=== PATIENT | female | born 1985 | race American Indian/Alaskan Native ===

== ENCOUNTER 2019-01-01 23:48 | Emergency (ER) | payer SELFPAY ==
--- NOTE | 2019-01-02 00:56 | Emergency Department Report ---
ED Extremity Problem HPI - General Chief complaint: Extremity Problem,Nontraumatic Stated complaint: RT FOOT PAIN Time Seen by Provider: 01/02/19 00:45 Source: patient Mode of arrival: Ambulatory Limitations: No Limitations - History of Present Illness Initial comments: Patient is a 33-year-old female that presents emergency room with complaints of right foot pain is swelling 2 days. Patient states that she did not fall and patient denies trauma. Patient states the pain is an 8 out of 10. Patient states the pain is better with rest and worse with palpation and movement. Patient states the pain is radiating to her right calf. Patient states she also has redness. Patient denies fever and chills. Patient denies chest pain shortness of breath. MD Complaint: extremity pain, extremity swelling -: Sudden Location: right, lower extremity (RT FOOT/RT LOWER EXT. ) History of Same: No Radiation: none Severity scale (0 -10): 10 Quality: stabbing Consistency: constant Improves with: rest Worsens with: weight bearing, walking, palpation Associated Symptoms: denies: chest pain, shortness of breath, fever, myalgias, arthralgias, rash - Related Data Previous Rx's Medication Instructions Recorded Last Taken Type Iron Fum,Ps/Folic/Bcomp,C No.9 1 each PO DAILY 30 Days #30 capsule 01/02/19 Unknown Rx [Integra Plus Capsule] Sulfamethoxazole/Trimethoprim 1 each PO BID 10 Days #20 tablet 01/02/19 Unknown Rx [Bactrim DS TAB] Allergies Allergy/AdvReac Type Severity Reaction Status Date / Time No Known Allergies Allergy Unverified 01/02/19 00:33 ED Review of Systems ROS: Stated complaint: RT FOOT PAIN Other details as noted in HPI Comment: All other systems reviewed and negative Constitutional: denies: chills, fever Eyes: denies: eye pain, eye discharge, vision change ENT: denies: ear pain, throat pain Respiratory: denies: cough, shortness of breath, wheezing Cardiovascular: denies: chest pain, palpitations Endocrine: no symptoms reported Gastrointestinal: denies: abdominal pain, nausea, diarrhea Genitourinary: denies: urgency, dysuria, discharge Musculoskeletal: denies: back pain, arthralgia Skin: denies: rash, lesions Neurological: denies: headache, weakness, paresthesias Psychiatric: denies: anxiety, depression Hematological/Lymphatic: denies: easy bleeding, easy bruising ED Past Medical Hx - Past Medical History Previous Medical History?: Yes Hx HIV: Yes Additional medical history: Anemia due to heavy menstrual cycles - Surgical History Past Surgical History?: Yes Additional Surgical History: . Tubal Ligation - Family History Family history: no significant - Social History Smoking Status: Current Every Day Smoker Substance Use Type: Alcohol - Medications Home Medications: Home Medications Medication Instructions Recorded Confirmed Last Taken Type Iron Fum,Ps/Folic/Bcomp,C No.9 1 each PO DAILY 30 Days #30 capsule 01/02/19 Unknown Rx [Integra Plus Capsule] Sulfamethoxazole/Trimethoprim 1 each PO BID 10 Days #20 tablet 01/02/19 Unknown Rx [Bactrim DS TAB] ED Physical Exam - General Limitations: No Limitations General appearance: alert, in no apparent distress - Head Head exam: Present: atraumatic, normocephalic - Eye Eye exam: Present: normal appearance - ENT ENT exam: Present: mucous membranes moist - Neck Neck exam: Present: normal inspection - Respiratory Respiratory exam: Present: normal lung sounds bilaterally. Absent: respiratory distress - Cardiovascular Cardiovascular Exam: Present: regular rate, normal rhythm. Absent: systolic murmur, diastolic murmur, rubs, gallop - GI/Abdominal GI/Abdominal exam: Present: soft, normal bowel sounds - Extremities Exam Extremities exam: Present: normal inspection (RT FOOT REDNESS,. ), tenderness (RT FOOT/ANKLE AND RT CALF), normal capillary refill, pedal edema, calf tenderness - Back Exam Back exam: Present: normal inspection - Neurological Exam Neurological exam: Present: alert, oriented X3 - Psychiatric Psychiatric exam: Present: normal affect, normal mood - Skin Skin exam: Present: warm, dry, intact, normal color. Absent: rash ED Course Vital Signs 01/02/19 00:28 Temperature 98.2 F Pulse Rate 102 H Respiratory 16 Rate Blood Pressure 142/87 O2 Sat by Pulse 98 Oximetry - Reevaluation(s) Reevaluation #1: I discussed all results with patient. I discussed plan of care with patient. Patient agrees with plan of care. Patient is stable for discharge. Patient will be discharged home. Patient given discharge instructions. Patient voiced understanding of discharge instructions. 01/02/19 02:23 ED Medical Decision Making - Lab Data Result diagrams: 01/02/19 01:17 01/02/19 01:17 - Radiology Data Radiology results: report reviewed, image reviewed interpreted by me: No acute findings on foot x-ray except for soft tissue swelling. RIGHT FOOT, 2 VIEWS 01/02/2019 INDICATION / CLINICAL INFORMATION: FOOT PAIN AND SWELLING. COMPARISON: None available. FINDINGS: No skeletal abnormality. No radiopaque soft tissue foreign bodies. Generalized soft tissue swelling of the foot, distally. - Medical Decision Making Patient is a 33-year-old female that presents emergency room with complaints of right foot pain and swelling. Patient found to have redness in the dorsal aspect of her right foot and patient will be treated for cellulitis with antibiotics. Due to the fact the patient has calf tenderness and pain radiating to her right calf a right lower extremity ultrasound be done. We do not have ultrasound at night and patient given an outpatient order to return at 8 AM for a Doppler ultrasound the right lower extremity. Patient given all instructions on how to contact the ultrasound department and how to have her ultrasound done here. Patient given a dose of Lovenox to cover the possibility of a DVT. Patient's x-rays negative for fracture. Patient's labs were done and unr emarkable except for anemia, and hypokalemia. Patient will be given iron supplement . Patient has a long history of anemia due to her menstrual cycles. Patient stable for discharge. Patient discharged home with discharge instructions and follow-up instructions as well as follow-up instructions for a ultrasound in the morning. - Differential Diagnosis DVT, sprain strain fracture. Cellulitis. Critical care attestation.: If time is entered above; I have spent that time in minutes in the direct care of this critically ill patient, excluding procedure time. ED Disposition Clinical Impression: Right foot pain, Cellulitis of right foot, Calf tenderness, Lower extremity pain, right, Swelling of lower extremity, Swelling of right foot, Hypokalemia Anemia Qualifiers: Anemia type: unspecified type Qualified Code(s): D64.9 - Anemia, unspecified Disposition: - TO HOME OR SELFCARE Is pt being admited?: No Does the pt Need Aspirin: No Condition: Stable Instructions: Cellulitis (ED), Iron Rich Diet (ED), Hypokalemia (ED), Iron Deficiency Anemia (ED), Anemia (ED), RICE Therapy (ED) Additional Instructions: Patient to follow-up with primary care in 2-3 days. Patient to follow-up with orthopedist in 2-3 days. Patient eat a banana daily. Patient to follow up here at 8 AM for a Doppler ultrasound of the right lower extremity. Patient to have her chemistry check with her primary care for low potassium. Patient to return to ER if condition worsens. Patient to rest. Patient to increase water. Patient to take meds as directed. Patient's take Tylenol or ibuprofen when necessary for pain. Prescriptions: Sulfamethoxazole/Trimethoprim [Bactrim DS TAB] 1 each PO BID 10 Days #20 tablet Iron Fum,Ps/Folic/Bcomp,C No.9 [Integra Plus Capsule] 1 each PO DAILY 30 Days #30 capsule Referrals: PRIMARY CARE, [Primary Care Provider] - 3-5 Days Time of Disposition: 02:32
[2019-01-02] MEDS ORDERED: LOVENOX SUB-Q ONE (00:59)
--- NOTE | 2019-01-02 01:43 | XRay Report ---
RIGHT FOOT, 2 VIEWS 01/02/2019 INDICATION / CLINICAL INFORMATION: FOOT PAIN AND SWELLING. COMPARISON: None available. FINDINGS: No skeletal abnormality. No radiopaque soft tissue foreign bodies. Generalized soft tissue swelling of the foot, distally. Signer Name: Willian Curry MD Signed: 01/02/2019 1:38 AM Workstation Name: [id number]
[2019-01-02 01:48] LABS: Basophils # (Auto) 0.1 K/mm3 (0.0-0.1); Basophils % (Auto) 0.7 % (0.0-1.8); Eosinophils # (Auto) 0.8 K/mm3 (0.0-0.4); Eosinophils % (Auto) 8.3 % (0.0-4.3); Hematocrit 28.5 % (30.3-42.9); Hemoglobin 8.9 gm/dl (10.1-14.3); Lymphocytes # (Auto) 3.2 K/mm3 (1.2-5.4); Lymphocytes % (Auto) 32.9 % (13.4-35.0); Mean Corpuscular HGB Conc 31 % (30-34); Monocytes % (Auto) 10.6 % (0.0-7.3); Platelet Count 439 K/mm3 (140-440); Red Blood Count 4.42 M/mm3 (3.65-5.03); Red Cell Distribution Width 18.7 % (13.2-15.2)
[2019-01-02 01:52] LABS: Mean Corpuscular Volume 65 fl (79-97)
[2019-01-02 01:53] LABS: Alanine Aminotransferase 12 units/L (7-56); Albumin 4.1 g/dL (3.9-5); BUN/Creatinine Ratio 16; Blood Urea Nitrogen 11 mg/dL (7-17); Calcium 8.6 mg/dL (8.4-10.2); Hemolysis Index 0
[2019-01-02 03:09] VITALS: BP 145/79
== END 2019-01-02 03:08 | disposition home or self-care (01) ==
LOC: ED 23:48
DX: L03.115 Cellulitis of right lower limb (principal); D64.9 Anemia, unspecified; E87.6 Hypokalemia; F17.200 Nicotine dependence, unspecified, uncomplicated; Z79.899 Other long term (current) drug therapy; Z21 Asymptomatic human immunodeficiency virus [HIV] infection status; Z98.51 Tubal ligation status
CPT/HCPCS: 36415; 73620; 80053; 85025; 96372; 99283; J1650

== ENCOUNTER 2019-01-02 12:27 | Emergency (ER) | payer SELFPAY ==
--- NOTE | 2019-01-02 12:44 | Event Note ---
ED Screening Note Date of service: 01/02/19 Time: 12:42 ED Screening Note: Pt complains of continued right foot and leg pain since visit last night. Pt states she was given an outpt US order, however pt states she was sent back to the ED from US due to not having insurance. Pt has not started the bactrim prescribed. This initial assessment/diagnostic orders/clinical plan/treatment(s) is/are subject to change based on patients health status, clinical progression and re- assessment by fellow clinical providers in the ED. Further treatment and workup at subsequent clinical providers discretion. Patient/guardian urged not to elope from the ED as their condition may be serious if not clinically assessed and managed. Initial orders include: US
--- NOTE | 2019-01-02 13:34 | Vascular Lab Report ---
DUPLEX DOPPLER LOWER EXTREMITY VEINS, RIGHT INDICATION: Right lower extremity pain and swelling for one day. TECHNIQUE: Duplex doppler imaging was performed through the veins of the right lower extremity using venous compression and other maneuvers. COMPARISON: No relevant prior imaging study available. FINDINGS: Right Common femoral vein: Negative. Right Superficial femoral vein: Negative. Right Popliteal vein: Negative. Right Calf veins: Negative. Additional findings: None.. IMPRESSION: No sonographic evidence for DVT in the right lower extremity. Signer Name: Tex Aleman Jr, MD Signed: 01/02/2019 1:29 PM Workstation Name: [id number]
--- NOTE | 2019-01-02 13:54 | Emergency Department Report ---
ED Extremity Problem HPI - General Chief complaint: Extremity Injury, Lower Stated complaint: FOOT SWOLLEN Time Seen by Provider: 01/02/19 13:36 Source: patient Mode of arrival: Ambulatory Limitations: No Limitations - History of Present Illness Initial comments: 33 y/o female complains of continued right foot and leg pain since visit last night. Pt states she was given an outpt US order, however pt states she was sent back to the ED from [place] due to not having insurance. Pt has not started the bactrim prescribed. Patient denies any dyspnea Location: right, other (foot) History of Same: Yes Severity scale (0 -10): 7 Associated Symptoms: denies other symptoms - Related Data Previous Rx's Medication Instructions Recorded Last Taken Type Iron Fum,Ps/Folic/Bcomp,C No.9 1 each PO DAILY 30 Days #30 capsule 01/02/19 Unknown Rx [Integra Plus Capsule] Sulfamethoxazole/Trimethoprim 1 each PO BID 10 Days #20 tablet 01/02/19 Unknown Rx [Bactrim DS TAB] Allergies Allergy/AdvReac Type Severity Reaction Status Date / Time No Known Allergies Allergy Verified 01/02/19 12:31 ED Review of Systems ROS: Stated complaint: FOOT SWOLLEN Other details as noted in HPI Comment: All other systems reviewed and negative ED Past Medical Hx - Past Medical History Previous Medical History?: Yes Hx Hypertension: No Hx CVA: No Hx Heart Attack/AMI: No Hx Congestive Heart Failure: No Hx Diabetes: No Hx Deep Vein Thrombosis: No Hx Pulmonary Embolism: No Hx GERD: No Hx Liver Disease: No Hx Renal Disease: No Hx of Cancer: No Hx Sickle Cell Disease: No Hx Arthritis: No Hx Headaches / Migraines: No Hx Seizures: No Hx Kidney Stones: No Hx Psychiatric Treatment: No Hx Asthma: No Hx COPD: No Hx Tuberculosis: No Hx Dementia: No Hx HIV: Yes Additional medical history: Anemia due to heavy menstrual cycles - Surgical History Past Surgical History?: Yes Hx Coronary Stent: No Hx Open Heart Surgery: No Hx Pacemaker: No Hx Internal Defibrillator: No Hx Cholecystectomy: No Hx Appendectomy: No Hx Breast Surgery: No Additional Surgical History: . Tubal Ligation - Social History Smoking Status: Never Smoker Substance Use Type: None - Medications Home Medications: Home Medications Medication Instructions Recorded Confirmed Last Taken Type Iron Fum,Ps/Folic/Bcomp,C No.9 1 each PO DAILY 30 Days #30 capsule 01/02/19 Unknown Rx [Integra Plus Capsule] Sulfamethoxazole/Trimethoprim 1 each PO BID 10 Days #20 tablet 01/02/19 Unknown Rx [Bactrim DS TAB] ED Physical Exam - General Limitations: No Limitations General appearance: alert, in no apparent distress - Head Head exam: Present: atraumatic, normocephalic - Eye Eye exam: Present: normal appearance - ENT ENT exam: Present: mucous membranes moist - Expanded Lower Extremity Exam Right Foot/Toe exam: Present: tenderness, swelling Neuro vascular tendon exam: Present: no vascular compromise - Neurological Exam Neurological exam: Present: alert, oriented X3 - Psychiatric Psychiatric exam: Present: normal affect, normal mood ED Course Vital Signs 01/02/19 12:37 Temperature 97.9 F Pulse Rate 109 H Respiratory 18 Rate Blood Pressure 143/104 Blood Pressure 143/104 [Right] O2 Sat by Pulse 99 Oximetry ED Medical Decision Making - Radiology Data Radiology results: report reviewed Patient: JOSEPH WILLIAM MR# : [id number] : 1985 Acct:[id number] Age/Sex: 33 / F ADM Date: 01/02/19 Loc: ED Attending Dr: Ordering Physician: RAMIREZ KIRBY Date of Service: 01/02/19 Procedure(s): VL venous duplex LE RT Accession Number(s): [id number] cc: RAMIREZ KIRBY DUPLEX DOPPLER LOWER EXTREMITY VEINS, RIGHT INDICATION: Right lower extremity pain and swelling for one day. TECHNIQUE: Duplex doppler imaging was performed through the veins of the right lower extremity using venous compression and other maneuvers. COMPARISON: No relevant prior imaging study available. FINDINGS: Right Common femoral vein: Negative. Right Superficial femoral vein: Negative. Right Popliteal vein: Negative. Right Calf veins: Negative. Additional findings: None.. IMPRESSION: No sonographic evidence for DVT in the right lower extremity. Signer Name: Tex Zapata Jr, MD Signed: 01/02/2019 1:29 PM Workstation Name: [id number] Transcribed By: TTR Dictated By: TEX ZAPATA JR, MD Electronically Authenticated By: TEX ZAPATA JR, MD Signed Date/Time: 01/02/191328 DD/ 28 TD/TT: - Medical Decision Making Pt complains of continued right foot and leg pain since visit last night. Pt states she was given an outpt US order, however pt states she was sent back to the ED from [place] due to not having insurance. Pt has not started the bactrim prescribed. US neg for DVT Patiemt is to continue all medications that was prescribed to her last night. Patient is to follow-up with a primary care provider per symptoms persist or gets worse. Critical care attestation.: If time is entered above; I have spent that time in minutes in the direct care of this critically ill patient, excluding procedure time. ED Disposition Clinical Impression: Cellulitis of right foot, Right foot pain, Swelling of right foot Disposition: DC-01 TO HOME OR SELFCARE Is pt being admited?: No Does the pt Need Aspirin: No Condition: Stable Referrals: [facility] [Outside] - 3-[address] [facility] [place] [Outside] - 3-5 Days
[2019-01-02 17:37] VITALS: BP 140/90
== END 2019-01-02 16:31 | disposition home or self-care (01) ==
LOC: ED 12:27
DX: L03.115 Cellulitis of right lower limb (principal)